=== PATIENT | female | born 1935 | race Caucasian/White ===

== ENCOUNTER 2016-07-08 10:52 | Outpatient (CLI) ==
[2016-07-08 11:22] LABS: ADD URINE MICROSCOPIC YES; BILIRUBIN,URINE NEGATIVE (NEGATIVE); KETONES,URINE NEGATIVE (NEGATIVE); LEUKOCYTE ESTERASE ,URINE NEGATIVE (NEGATIVE); NITRITE,URINE NEGATIVE (NEGATIVE); PROTEIN,URINE NEGATIVE (NEGATIVE); URINE, BLOOD TRACE (NEGATIVE)
== END 2016-07-08 10:53 | disposition home or self-care (01) ==
LOC: NONPT 10:52
PROVIDERS: ATTEND Family Medicine
DX: R35.0 Frequency of micturition (principal)
CPT/HCPCS: 81001

== ENCOUNTER 2017-01-28 05:49 | Emergency (ER) ==
[2017-01-28] MEDS ORDERED: SOLU-MEDROL 125 MG IVP STA (06:03)
[2017-01-28] MEDS ORDERED: DUONEB NEB STA (06:03)
[2017-01-28 06:05] VITALS: BP 112/69; TEMP 98.3; BMI 27.4
--- NOTE | 2017-01-28 06:06 | ED.PDOC ---
General Stated Complaint: Pateint is an 81 year old has a history of COPD and comes to the ER with progressive shortness of breath worse this morning. Time Seen by Physician: 06:05 Mode of Arrival: Wheelchair Information Source: Patient Exam Limitations: No limitations Nursing and Triage Documentation Reviewed and Agree: Yes <DANIEL ESTEBAN - Last Filed: 01/28/17 06:43> Stated Complaint: Disc with Dr Esteban, patient with recurrent copd, exacerbation , disc with patient, much better not well enough to go home, niece notes "flu" yesterday NDV all day all night began 8 AM no vomiting but nausea through this morning with frequent diarrhea 01/27 AM through his morning, severe shortness of breath better with Duoneb <DAYAN WHITFIELD JR - Last Filed: 01/28/17 10:04> ED Provider: Dr. DAYAN WHITFIELD JR Chief Complaint: Shortness of Air Primary Care Provider: AMEENA BARRON Respiratory Complaint Exam - Shortness of Air Complaint/Exam Onset/Duration: 1 week Symptoms Are: Still present Timing: Constant Initial Severity: Moderate Current Severity: Severe Character: Reports: Dyspnea at rest Aggravating: Reports: URI, Weather Alleviating: Reports: Bronchodilators, Oxygen Associated Signs and Symptoms: Reports: Cough, Wheezing. Denies: Chest pain with cough, Chest pain, Fever, Chills <DANIEL ESTEBAN Last Filed: 01/28/17 06:43> Review of Systems - Review Of Systems Constitutional: Reports: No symptoms Eyes: Reports: No symptoms Ears, Nose, Mouth, Throat: Reports: No symptoms Respiratory: Reports: Cough, Short of air, Wheezing Cardiac: Reports: No symptoms GI: Reports: No symptoms : Reports: No symptoms Musculoskeletal: Reports: No symptoms Skin: Reports: No symptoms Neurological: Reports: No symptoms Endocrine: Reports: No symptoms Hematologic/Lymphatic: Reports: No symptoms All Other Systems: Reviewed and Negative <DANIEL ESTEBAN Last Filed: 01/28/17 06:43> Past Medical History - Past Medical History Endocrine: Reports: DM 2, Hypothyroid, Dyslipidemia Cardiovascular: Reports: Hypertension, CHF, A-Fib Respiratory: Reports: COPD, Asthma Hematological: Reports: None Gastrointestinal: Reports: GERD Genitourinary: Reports: None Neuro/Psych: Reports: Anxiety, Depression Musculoskeletal: Reports: Arthritis Cancer: Reports: None Last Menstrual Period: hyst at 40 years old - Surgical History General Surgical History: Reports: Hysterectomy, Other (Thyroidectomy ) - Family History Family History: Reports: None - Social History Smoking Status: Former smoker Hx Substance Use: No Alcohol Screening: None - Immunizations Tetanus Shot up to Date: Yes <DANIEL ESTEBAN - Last Filed: 01/28/17 06:43> Physical Exam - Physical Exam Appearance: Ill-appearing, Well-nourished, Obese Ill-appearing: Moderate Eyes: MILI ENT: Ears normal, Nose normal, Oropharynx normal Neck: Supple Respiratory: Airway patent, Breath sounds equal, Wheezes Cardiovascular: RRR, Pulses normal, No rub, No murmur GI/: Soft, Nontender, No masses, Bowel sounds normal Musculoskeletal: Normal strength, ROM intact, No edema, No calf tenderness Skin: Warm, Dry, Normal color Neurological: Sensation intact, Motor intact, Alert, Oriented Psychiatric: Anxious <DANIEL ESTEBAN - Last Filed: 01/28/17 06:43> Interpretation - Radiology Interpretation Radiology Interpretation By: ED Physician Radiology Results: Negative Exam Interpreted: Portable CXR - EKG Interpretation Rate: Normal Rhythm: Sinus Ectopy: None Time of EKG #2: 06:10 Rate: Normal Rhythm: Sinus [place]: Left ST Segment: Other (Anterior infact unknown age.) EKG Interpretation: incomplete right bandle branch block. <DANIEL ESTEBAN - Last Filed: 01/28/17 06:43> - EKG Interpretation Time of EKG #2: 09:35 EKG Interpretation: unchanged <DAYAN WHITFIELD JR - Last Filed: 01/28/17 10:04> Re-Evaluation - Re-Evaluation Time of Re-Evaluation: 07:01 Status: Improved (CBC LACTATE ABG RESULTS ALL CHEMISTY AND COAG PENDING) <DAYAN WHITFIELD JR - Last Filed: 01/28/17 10:04> Physician Notification - Case Discussed Time of Notification: 07:00 Endorsed To/Discussed With: Dr. Whitfield <DANIEL ESTEBAN - Last Filed: 01/28/17 06:43> - Case Discussed Physician Notified: DR BARRON Time of Notification: 09:50 (MAY HAVE FOLLWO UP IN OFFICE NOW;FAMILY NOT HERE- NOTE HOME EMDS;MAY DISCHARGE HOME) Endorsed To/Discussed With: DR ESTEBAN Time of Discussion: 06:45 (AWAITING LABS) <DAYAN WHITFIELD - Last Filed: 01/28/17 10:04> Critical Care Note - Critical Care Note Total Time (mins): 35 <DANIEL ESTEBAN - Last Filed: 01/28/17 06:43> Course - Course Hematology/Chemistry: 01/28/17 06:28 <DANIEL ESTEBAN - Last Filed: 01/28/17 06:43> - Course Hematology/Chemistry: 01/28/17 06:28 01/28/17 06:28 <WHITFIELDDAYAN RADAMES VEGA - Last Filed: 01/28/17 10:04> - Course Orders, Labs, Meds: Lab Review 01/28/17 01/28/17 01/28/17 06:00 06:28 06:37 WBC 11.73 H RBC 3.82 L Hgb 11.0 L Hct 34.9 L MCV 91.4 MCH 28.8 MCHC 31.5 L RDW Coeff of Esperanza 14.8 Plt Count 320 Immature Gran % (Auto) 0.3 Neut % (Auto) 48.6 Lymph % (Auto) 20.5 Whitman % (Auto) 8.2 Eos % (Auto) 21.8 H Baso % (Auto) 0.6 Immature Gran # (Auto) 0.0 Neut # 5.7 Lymph # 2.4 Whitman # 1.0 Eos # 2.6 H Baso # 0.1 PT 10.9 INR 1.07 D-Dimer (Manual) 1708.30 Puncture Site Lb O2 Saturation 92.0 L ABG pH 7.410 ABG pCO2 49.6 H ABG pO2 64.0 L ABG HCO3 31.4 H ABG Total CO2 33 H ABG Base Excess 7 H Kirby Test + O2 Delivery Device Nc Oxygen Liter Flow 2.00 FiO2 % 28.0 Sodium 144 Potassium 3.5 Chloride 99 Carbon Dioxide 33 H Anion Gap 15.5 BUN 10 Creatinine 0.81 Estimated GFR (MDRD) 68.00 BUN/Creatinine Ratio 12.34 Glucose 128 H Lactic Acid 13.1 Calcium 9.6 Total Bilirubin 0.43 AST 16 ALT 37 Alkaline Phosphatase 142 H Total Creatine Kinase 31 Troponin I 0.0190 B-Natriuretic Peptide 32 Total Protein 6.5 Albumin 3.1 L Globulin 3.4 Albumin/Globulin Ratio 0.91 Procalcitonin < 0.05 Digoxin < 0.30 L Orders Category Date Time Status ABG DRAW REQUEST Stat CARDIO 01/28/17 06:00 Completed EKG-(ED ONLY) Stat CARDIO 01/28/17 06:01 Completed EKG-(ED ONLY) Stat CARDIO 01/28/17 09:29 Completed NEBULIZER TREATMENT Stat CARDIO 01/28/17 06:03 Completed IV ACCESS ONCE CARE 01/28/17 05:59 Active NPO REMINDER: IMAGING ONCE CARE 01/28/17 07:34 Active ED APPLY O2 .ONCE EMERGENCY 01/28/17 05:59 Active ED LPN PER DIEM APPLIED .ONCE EMERGENCY 01/28/17 05:59 Active ED VITAL SIGNS EMERGENCY 01/28/17 05:59 Active IV [ED IV/MEDIPORT/POWERPORT] .ONCE EMERGENCY 01/28/17 06:12 Active ABG Stat LAB 01/28/17 06:00 Completed B-TYPE NATRIURETIC PEPTIDE Stat LAB 01/28/17 06:28 Completed CBC W/ AUTO DIFF Stat LAB 01/28/17 06:28 Completed COMPREHENSIVE METABOLIC PANEL Stat LAB 01/28/17 06:28 Completed CREATINE KINASE Stat LAB 01/28/17 06:28 Completed D-DIMER Stat LAB 01/28/17 06:28 Completed DIGOXIN Stat LAB 01/28/17 06:37 Completed LACTIC ACID Stat LAB 01/28/17 06:28 Completed PROCALCITONIN Stat LAB 01/28/17 06:28 Completed PT WITH INR Stat LAB 01/28/17 06:37 Completed TROPONIN I Stat LAB 01/28/17 06:28 Completed 0.9 % Sodium Chloride [Saline Flush] MEDS 01/28/17 06:12 Active 1 syr IVF PRN PRN Hydrocodone Bit/Acetaminophen [[place] 7.5-325] MEDS 01/28/17 06:38 Discontinued 1 tab PO ONCE STA Ipratropium/Albuterol Neb [Duoneb] MEDS 01/28/17 06:03 Discontinued 1 vial NEB ONCE STA Levofloxacin/D5w [Levaquin] 100 ml MEDS 01/28/17 06:41 Discontinued IV .STK-MED Levofloxacin/D5w [Levaquin] 500 mg MEDS 01/28/17 06:35 Discontinued Premix 100 ml D5w 1 bag IV ONCE Methylprednisolone Sod Succ/Pf [Solu-Medrol 125 mg] MEDS 01/28/17 06:03 Discontinued 125 mg IVP ONCE STA CHEST, 1V AP ONLY Stat RADS 01/28/17 05:[address] CHEST PE PROTOCOL Stat RADS 01/28/17 07:34 Completed Medications Generic Name Dose Route Start Last Admin Trade Name Freq PRN Reason Stop Dose Admin Sodium Chloride 1 syr 01/28/17 06:12 01/28/17 08:08 Saline Flush IVF 1 syr PRN PRN Administration To flush IV Discontinued Medications Generic Name Dose Route Start Last Admin Trade Name Freq PRN Reason Stop Dose Admin Acetaminophen/Hydrocodone Bitart 1 tab 01/28/17 06:38 01/28/17 06:49 [place] 7.5-325 PO 01/28/17 06:39 1 tab ONCE STA Administration Albuterol/Ipratropium 1 vial 01/28/17 06:03 01/28/17 06:21 Duoneb NEB 01/28/17 06:04 1 vial ONCE STA Administration Levofloxacin/Dextrose 500 mg/ 100 mls @ 100 mls/hr 01/28/17 06:35 01/28/17 07 :12 Dextrose IV 01/28/17 07:34 100 mls/hr ONCE STA Administration Methylprednisolone Sodium Succinate 125 mg 01/28/17 06:03 01/28/17 06:34 Solu-Medrol 125 Mg IVP 01/28/17 06:04 125 mg ONCE STA Administration Vital Signs: Temp Pulse Resp BP Pulse Ox 01/28/17 05:50 98.3 F 82 24 112/69 85 L Departure <DANIEL ESTEBAN - Last Filed: 01/28/17 06:43> - Departure Time of Disposition: 10:00 Pt referred to PMD for follow-up: Yes <DAYAN WHITFIELD JR - Last Filed: 01/28/17 10:04> - Departure Disposition: HOME SELF-CARE Discharge Problem: COPD exacerbation Instructions: Emphysema (ED), COPD (Chronic Obstructive Pulmonary Disease) (ED) , How Your Lungs Work (ED) Condition: Good Additional Instructions: home today follow up with PMD bactrim DS twice a day for one week duonebs twice a day for four days then as needed Prescriptions: Sulfamethoxazole/Trimethoprim [Bactrim Ds 800/160 mg] 1 tab PO Q12HR #14 tablet Allergies/Adverse Reactions: Allergies Penicillins Adverse Reaction (Verified 01/28/17 06:07) Hives Home Medications: Ambulatory Orders Atorvastatin Calcium 40 mg PO DAILY 01/28/17 Bisacodyl 5 mg PO DAILY 01/28/17 Clonazepam 0.5 mg PO DAILY 01/28/17 Diltiazem HCl [Cardizem Cd] 180 mg PO DAILY 01/28/17 Docusate Sodium [Colace] 100 mg PO DAILY 01/28/17 Duloxetine HCl [Cymbalta] 60 mg PO DAILY 01/28/17 Furosemide 20 mg PO DAILY 01/28/17 Hydrocodone Bit/Acetaminophen [[place] 7.5-325] 1 tab PO DAILY 01/28/17 Insulin Detemir [Levemir] 10 units SUBCUT DAILY 01/28/17 Insulin Lispro [Humalog] 1 unit SUBCUT QID 01/28/17 Levothyroxine Sodium [Synthroid] 100 mcg PO DAILY 01/28/17 Metformin HCl [Glucophage] 500 mg PO BID 01/28/17 Metoprolol Succinate [Toprol Xl] 25 mg PO DAILY 01/28/17 Pantoprazole Sodium [Protonix] 40 mg PO DAILY 01/28/17 Pregabalin [Lyrica] 75 mg PO DAILY 01/28/17 Promethazine HCl [Phenergan Tab] 25 mg PO DAILY 01/28/17 Rivaroxaban [Xarelto] 20 mg PO DAILY 01/28/17 Sulfamethoxazole/Trimethoprim [Bactrim Ds 800/160 mg] 1 tab PO Q12HR #14 tablet 01/28/17
[2017-01-28 06:16] LABS: ABG BASE EXCESS 7 (-2.0-2.0); ABG HCO3 31.4 (22.0-26.0); ABG PCO2 49.6 mmHg (35-45); ABG TCO2 33 (22.0-28.0)
[2017-01-28 06:31] LABS: BASOPHILS # (AUTO) 0.1 K/uL (0-0.2); BASOPHILS % (AUTO) 0.6 % (0.0-3.0); EOSINOPHILS # (AUTO) 2.6 K/ul (0.0-0.7); EOSINOPHILS % (AUTO) 21.8 % (0.0-7.0); HEMATOCRIT 34.9 % (37.0-47.0); IMMATURE GRANULOCYTE % (AUTO) 0.3 % (0.0-5.0); LYMPHOCYTES # (AUTO) 2.4 K/uL (0.60-3.4); LYMPHOCYTES % (AUTO) 20.5 (10.0-50.0); MEAN CORPUSCULAR HEMOGLOBIN 28.8 pg (27.0-31.0); MEAN CORPUSCULAR HGB CONC 31.5 (31.8-35.4); MEAN CORPUSCULAR VOLUME 91.4 fl (81.0-99.0); MONOCYTES % (AUTO) 8.2 (0-10); NEUTROPHILS # (AUTO) 5.7 K/ul (2.0-6.9); NEUTROPHILS % (AUTO) 48.6; PLATELET COUNT 320 10^3/uL (140-440); RED BLOOD COUNT 3.82 10^6/ul (4.20-5.40); WHITE BLOOD COUNT 11.73 K/ul (4.6-10.2)
[2017-01-28] MEDS ORDERED: LEVAQUIN 500 MG in PREMIX 100 ML D5W 1 BAG IV STA (06:35)
[2017-01-28] MEDS ORDERED: NORCO 7.5-325 PO STA (06:38)
[2017-01-28] MEDS ORDERED: LEVAQUIN 100 ML IV ONE (06:41)
[2017-01-28 06:49] LABS: PROTHROMBIN TIME 10.9 SEC (9.3-11.0)
[2017-01-28 06:57] LABS: ALBUMIN 3.1 g/dL (3.4-5.0); ALBUMIN/GLOBULIN RATIO 0.91; ANION GAP 15.5; BILIRUBIN,TOTAL 0.43 mg/dL (0.00-1.20); CALCIUM 9.6 mg/dL (8.2-10.2); CREATININE 0.81 mg/dL (0.60-1.30); POTASSIUM 3.5 mmol/L (3.5-5.10); TOTAL PROTEIN 6.5 g/dL (5.8-8.1)
[2017-01-28 06:58] LABS: BUN/CREATININE RATIO 12.34; TROPONIN I 0.019 ng/ml (0.0000-0.4000)
--- NOTE | 2017-01-28 07:24 | DI ---
EXAM: CHEST FRONTAL VIEW HISTORY: Cough and shortness of breath. COMPARISON: 05/09/2015 FINDINGS: Heart size is within normal limits. Mild hyperinflation. Left lower lobe calcification consistent with old granulomatous disease. Surgical clips over the right lower neck. No acute bony finding. IMPRESSION: No acute cardiopulmonary process identified.
--- NOTE | 2017-01-28 09:18 | CT ---
EXAM: CTA CHEST (PE PROTOCOL) HISTORY: Short of breath, positive D-dimer TECHNIQUE: CTA with intravenous contrast. Multiplanar images were provided with 3-D reconstruction s. 100 mL Omnipaque. COMPARISON: None FINDINGS: No pulmonary arterial filling defect. Mild to moderate atherosclerotic disease. Normal heart size. No pericardial effusion or mediastinal lymphadenopathy. Lungs reveal chronic interstitial changes throughout with mild basilar bronchiectasis. There is a n oncalcified indeterminate 0.43-cm nodule in the medial posterior aspect of the right lower lobe. Th ere is a 0.43 cm similar nodule in the left lower lobe. Nodular consolidations are seen in the post erior right lung base (atelectasis or pneumonia). Underlying nodules in this region not excluded. A few calcified nodules consistent with old granulomatous disease. There is no pleural fluid, vascu lar congestion or pneumothorax. The bones reveal degenerative disc disease of the lumbar spine. IMPRESSION: 1. No pulmonary arterial thromboembolism identified. 2. At least a single noncalcified, indeterminate nodule found in each lung. Nodular consolidations in the right lung base could represent atelectasis or mild pneumonia. Underlying nodules at this s ite are also not excluded. Consider follow-up CT in 3-4 months. 3. Mild to moderate atherosclerosis.
== END 2017-01-28 10:27 | disposition home or self-care (01) ==
LOC: ED 05:49
DX: J44.1 Chronic obstructive pulmonary disease with (acute) exacerbation (principal); J43.9 Emphysema, unspecified; R06.02 Shortness of breath; E11.9 Type 2 diabetes mellitus without complications; E03.9 Hypothyroidism, unspecified; E78.5 Hyperlipidemia, unspecified; I10 Essential (primary) hypertension; R11.2 Nausea with vomiting, unspecified; R19.7 Diarrhea, unspecified; Z79.899 Other long term (current) drug therapy
CPT/HCPCS: 36415; 80053; 80162; 82550; 82803; 83605; 83880; 84145; 84484; 85025; 85379; 85610; 93005; 93010; 94640; 96365; 96375; 99283

== ENCOUNTER 2017-02-09 06:45 | Emergency (ER) ==
[2017-02-09 06:45] VITALS: BMI 27.4
[2017-02-09 06:55] VITALS: BP 115/67; TEMP 96.4
[2017-02-09] MEDS ORDERED: DUONEB NEB STA ×2 (07:10→08:25)
--- NOTE | 2017-02-09 07:13 | ED.PDOC ---
General ED Provider: Dr. DARIELA MERCADO Chief Complaint: Diarrhea Stated Complaint: Pt complains of diarrhea and abdominal pain for approximately a week. Occasional nausea but no emesis. No fever or chills. Recently treated for an exacerbation of COPD. Given a shot of steroids and currently on Levaquin. Pt reports stools to be be very foul-smelling, but "not like C.Diff. 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." Time Seen by Physician: 07:00 Mode of Arrival: Wheelchair Information Source: Patient Exam Limitations: No limitations Primary Care Provider: AMEENA BARRON Nursing and Triage Documentation Reviewed and Agree: Yes GI Complaint Exam - Vomiting/Diarrhea Complaint/Exam Symptoms Are: Still present Episodes of Diarrhea Over Last 24 Hours: 20 (TNTC) Initial Severity: Moderate Current Severity: Moderate Character of Diarrhea: Reports: Watery Aggravating: Reports: None Alleviating: Reports: None Associated Signs and Symptoms: Reports: Abdominal pain, Cramping Related History: Reports: Recent antibiotics (Levaquin) Last Bowel Movement: last night early AM Recent Positive Test: No Use of Oral Contraceptives: No Use of Depoprovera: No Non-GI Risk Factors: Reports: None Surgical Obstruction Risk Factors: Reports: None Related Surgical History: Reports: None Abdominal Findings: Present: None (generalized tenderness) K[place]maul Respirations Present: No Differential Diagnoses: Dehydration, Viral Gastroenteritis, Bacterial Gastroenteritis (C.Diff) Review of Systems - Review Of Systems Constitutional: Reports: Weakness, Loss of appetite (no food x 2 days) Eyes: Reports: No symptoms Ears, Nose, Mouth, Throat: Reports: No symptoms Respiratory: Reports: Cough, Wheezing Cardiac: Reports: No symptoms GI: Reports: Abdomen distended, Abdominal pain, Diarrhea, Nausea, Poor appetite : Reports: No symptoms Musculoskeletal: Reports: No symptoms Skin: Reports: No symptoms Neurological: Reports: No symptoms All Other Systems: Reviewed and Negative Past Medical History - Past Medical History Endocrine: Reports: DM 2, Hypothyroid, Dyslipidemia Cardiovascular: Reports: Hypertension, CHF, A-Fib Respiratory: Reports: COPD, Asthma Hematological: Reports: None Gastrointestinal: Reports: GERD Genitourinary: Reports: None Neuro/Psych: Reports: Anxiety, Depression Musculoskeletal: Reports: Arthritis Cancer: Reports: None Last Menstrual Period: PT HAS HAD A HYSTERECTOMY - Surgical History General Surgical History: Reports: Hysterectomy, Other (Thyroidectomy ) - Family History Family History: Reports: None - Social History Smoking Status: Former smoker Hx Substance Use: No Alcohol Screening: None Lives: Alone - Immunizations Tetanus Shot up to Date: Yes Physical Exam - Physical Exam Appearance: Ill-appearing, Well-nourished Ill-appearing: Mild Pain Distress: Mild Eyes: MILI, EOMI, Conjunctiva clear ENT: Ears normal, Nose normal, Oropharynx normal Respiratory: Airway patent, Breath sounds equal, Respirations nonlabored, Wheezes (exp wheezes in AF) Cardiovascular: RRR, Pulses normal, No rub, No murmur GI/: Soft, No masses, Bowel sounds normal, No Organomegaly, Tender ( generalized tenderness) Musculoskeletal: Normal strength, ROM intact, No edema, No calf tenderness Skin: Warm, Dry, Normal color Neurological: Sensation intact, Motor intact, Reflexes intact, Cranial nerves intact, Alert, Oriented Psychiatric: Affect appropriate, Mood appropriate Re-Evaluation - Re-Evaluation Time of Re-Evaluation: 09:57 (Patient reveals she took imodium this am and hasn' t moved her bowels since then) Status: Unchanged Vital Signs Stable: Yes Pain Level: 4/10 Appearance: NAD Lungs: Clear Skin: Warm and Dry Neuro: Alert and Oriented X3 CV: RRR Additional Comments: Abd: soft, BS+, generalized mild tenderness Critical Care Note - Critical Care Note Total Time (mins): 0 Course - Course Hematology/Chemistry: 02/09/17 07:24 02/09/17 07:24 Orders, Labs, Meds: Lab Review 02/09/17 02/09/17 07:24 08:00 WBC 14.54 H RBC 3.80 L Hgb 10.6 L Hct 33.9 L MCV 89.2 MCH 27.9 MCHC 31.3 L RDW Coeff of Esperanza 14.7 Plt Count 371 Immature Gran % (Auto) 0.6 Neut % (Auto) 78.8 Lymph % (Auto) 10.8 [place]cc[place]ick % (Auto) 8.2 Eos % (Auto) 1.3 Baso % (Auto) 0.3 Immature Gran # (Auto) 0.1 Neut # 11.5 H Lymph # 1.6 [place]ormick # 1.2 Eos # 0.2 Baso # 0.1 Sodium 138 Potassium 3.6 Chloride 102 Carbon Dioxide 29 Anion Gap 10.6 BUN 16 Creatinine 0.72 Estimated GFR (MDRD) 78.00 BUN/Creatinine Ratio 22.22 Glucose 97 Calcium 9.1 Total Bilirubin 0.48 AST 405 H ALT 127 H Alkaline Phosphatase 162 H Total Protein 6.0 Albumin 3.2 L Globulin 2.8 Albumin/Globulin Ratio 1.14 Urine Color Yellow Urine Clarity Clear Urine pH 7.0 Ur Specific [place] 1.015 Urine Protein Negative Urine Glucose (UA) Negative Urine Ketones Negative Urine Blood Negative Urine Nitrite Negative Urine Bilirubin Negative Urine Urobilinogen 0.2 Ur Leukocyte Esterase Negative Orders Category Date Time Status NEBULIZER TREATMENT Stat CARDIO 02/09/17 07:11 Completed C-DIFF MONITORING (NURSING) BID CARE 02/09/17 07:12 Active C. DIFFICILE Routine LAB 02/09/17 07:12 Uncollected CBC W/ AUTO DIFF Stat LAB 02/09/17 07:24 Completed COMPREHENSIVE METABOLIC PANEL Stat LAB 02/09/17 07:24 Completed OVA AND PARASITES EXAM Stat LAB 02/09/17 07:11 Ordered STOOL CULTURE Stat LAB 02/09/17 Ordered URINALYSIS C & S IF INDICATED Stat LAB 02/09/17 08:00 Completed Ipratropium/Albuterol Neb [Duoneb] MEDS 02/09/17 07:10 Discontinued 1 vial NEB ONCE STA CHEST, 2 VIEWS PA & LAT Stat RADS 02/09/17 07:48 Completed Medications Discontinued Medications Generic Name Dose Route Start Last Admin Trade Name Freq PRN Reason Stop Dose Admin Albuterol/Ipratropium 1 vial 02/09/17 07:10 02/09/17 07:19 Duoneb NEB 02/09/17 07:11 1 vial ONCE STA Administration Vital Signs: Temp Pulse Resp BP Pulse Ox 02/09/17 06:46 96.4 F L 68 24 115/67 97 Departure - Departure Time of Disposition: 09:59 Disposition: HOME SELF-CARE Discharge Problem: Gastroenteritis Instructions: Gastroenteritis (ED) Condition: Good Pt referred to PMD for follow-up: No (if still having diarrhea in 3 days, see PCP) Additional Instructions: Bring in stool sample to get stool labs completed Allergies/Adverse Reactions: Allergies Penicillins Adverse Reaction (Verified 02/09/17 06:55) Hives Home Medications: Ambulatory Orders Atorvastatin Calcium 40 mg PO DAILY 01/28/17 Bisacodyl 5 mg PO DAILY PRN 01/28/17 Clonazepam 1 mg PO BID 01/28/17 Diltiazem HCl [Cardizem Cd] 180 mg PO BID 01/28/17 Duloxetine HCl [Cymbalta] 60 mg PO DAILY 01/28/17 Furosemide 20 mg PO DAILY 01/28/17 Hydrocodone Bit/Acetaminophen [[place] 7.5-325] 1 tab PO Q12H PRN 01/28/17 Insulin Lispro [Humalog] 1 unit SUBCUT QID 01/28/17 Levothyroxine Sodium [Synthroid] 100 mcg PO DAILY 01/28/17 Metformin HCl [Glucophage] 1,000 mg PO BID 01/28/17 Metoprolol Succinate [Toprol Xl] 25 mg PO BID 01/28/17 Pregabalin [Lyrica] 75 mg PO BID 01/28/17 Ipratropium/Albuterol Neb [Duoneb] 1 vial NEB RTQ4H PRN 02/09/17 Ondansetron [Zofran Odt] 4 mg PO 2-4XD PRN #12 tab.rapdis 02/09/17 Rivaroxaban [Xarelto] 15 mg PO DAILY 02/09/17 Disposition Discussed With: Patient
[2017-02-09 07:29] LABS: BASOPHILS # (AUTO) 0.1 K/uL (0-0.2); BASOPHILS % (AUTO) 0.3 % (0.0-3.0); EOSINOPHILS # (AUTO) 0.2 K/ul (0.0-0.7); EOSINOPHILS % (AUTO) 1.3 % (0.0-7.0); HEMATOCRIT 33.9 % (37.0-47.0); HEMOGLOBIN 10.6 g/dl (12.0-16.0); IMMATURE GRANULOCYTE % (AUTO) 0.6 % (0.0-5.0); LYMPHOCYTES # (AUTO) 1.6 K/uL (0.60-3.4); LYMPHOCYTES % (AUTO) 10.8 (10.0-50.0); MEAN CORPUSCULAR HEMOGLOBIN 27.9 pg (27.0-31.0); MEAN CORPUSCULAR HGB CONC 31.3 (31.8-35.4); MEAN CORPUSCULAR VOLUME 89.2 fl (81.0-99.0); MONOCYTES # (AUTO) 1.2 K/uL (0.4-2.0); MONOCYTES % (AUTO) 8.2 (0-10); NEUTROPHILS # (AUTO) 11.5 K/ul (2.0-6.9); NEUTROPHILS % (AUTO) 78.8; PLATELET COUNT 371 10^3/uL (140-440); WHITE BLOOD COUNT 14.54 K/ul (4.6-10.2)
[2017-02-09 07:48] LABS: ALBUMIN 3.2 g/dL (3.4-5.0); ALBUMIN/GLOBULIN RATIO 1.14; ANION GAP 10.6; BILIRUBIN,TOTAL 0.48 mg/dL (0.00-1.20); BUN/CREATININE RATIO 22.22; CALCIUM 9.1 mg/dL (8.2-10.2); CREATININE 0.72 mg/dL (0.60-1.30); POTASSIUM 3.6 mmol/L (3.5-5.10)
[2017-02-09 08:10] LABS: BILIRUBIN,URINE Negative (NEGATIVE); KETONES,URINE Negative (NEGATIVE); LEUKOCYTE ESTERASE ,URINE Negative (NEGATIVE); NITRITE,URINE Negative (NEGATIVE); PROTEIN,URINE Negative (NEGATIVE); URINE, BLOOD Negative (NEGATIVE)
[2017-02-09 08:11] LABS: ADD URINE MICROSCOPIC NO
--- NOTE | 2017-02-09 08:16 | DI ---
Exam: Two-view chest x-ray. Date: 02/09/2017. Comparison: 01/28/2017. HISTORY: Wheezing despite steroid use. FINDINGS: Changes of a probable right thyroidectomy are again seen. The lungs are clear with calci fied granulomas. The cardiac silhouette and pulmonary vasculature are normal. ASVD is present. Impression: No acute intrathoracic findings. Old granulomatous disease.
== END 2017-02-09 10:10 | disposition home or self-care (01) ==
LOC: ED 06:45
DX: K52.9 Noninfective gastroenteritis and colitis, unspecified (principal)
CPT/HCPCS: 36415; 80053; 81001; 85025; 94640; 99283

== ENCOUNTER 2017-03-11 22:58 | Outpatient (CLI) | END 2017-03-11 23:30 | disposition short-term general hospital (02) | LOC: AMBL 22:58 | PROVIDERS: ATTEND Internal Medicine Geriatric Medicine | DX: R53.1 Weakness (principal); R19.7 Diarrhea, unspecified; R41.82 Altered mental status, unspecified ==

== ENCOUNTER 2017-05-14 04:28 | Emergency (ER) ==
[2017-05-14] MEDS ORDERED: DUONEB NEB STA ×2 (04:32→08:53)
[2017-05-14] MEDS ORDERED: SOLU-MEDROL 125 MG IVP STA (04:32)
[2017-05-14] MEDS ORDERED: LEVAQUIN 500 MG in PREMIX 100 ML D5W 1 BAG IV STA (04:34)
[2017-05-14 04:35] VITALS: BP 135/58; TEMP 96.4; BMI 25.7
[2017-05-14] MEDS ORDERED: LEVAQUIN 100 ML IV ONE (04:37)
[2017-05-14 04:51] LABS: BASOPHILS # (AUTO) 0.1 K/uL (0-0.2); BASOPHILS % (AUTO) 0.4 % (0.0-3.0); EOSINOPHILS # (AUTO) 1.6 K/ul (0.0-0.7); EOSINOPHILS % (AUTO) 10.7 % (0.0-7.0); HEMATOCRIT 35.1 % (37.0-47.0); HEMOGLOBIN 10.4 g/dl (12.0-16.0); IMMATURE GRANULOCYTE % (AUTO) 0.7 % (0.0-5.0); LYMPHOCYTES # (AUTO) 2.4 K/uL (0.60-3.4); LYMPHOCYTES % (AUTO) 16.3 (10.0-50.0); MEAN CORPUSCULAR HEMOGLOBIN 25.8 pg (27.0-31.0); MEAN CORPUSCULAR HGB CONC 29.6 (31.8-35.4); MEAN CORPUSCULAR VOLUME 87.1 fl (81.0-99.0); MONOCYTES % (AUTO) 6.6 (0-10); NEUTROPHILS # (AUTO) 9.7 K/ul (2.0-6.9); NEUTROPHILS % (AUTO) 65.3; PLATELET COUNT 307 10^3/uL (140-440); RED BLOOD COUNT 4.03 10^6/ul (4.20-5.40); WHITE BLOOD COUNT 14.89 K/ul (4.6-10.2)
[2017-05-14 04:54] LABS: ABG BASE EXCESS 5 (-2.0-2.0); ABG PCO2 85.5 mmHg (35-45); ABG PH 7.193 (7.35-7.45)
[2017-05-14 04:55] LABS: ABG HCO3 32.9 (22.0-26.0); ABG TCO2 35 (22.0-28.0)
--- NOTE | 2017-05-14 04:58 | ED.PDOC ---
General Stated Complaint: Started with coughing, congestion, today got worse, she was found on the floor outside the house. Was in the respiratory distress, wheezing. Time Seen by Physician: 04:55 Mode of Arrival: Wheelchair Information Source: Patient, Police Nursing and Triage Documentation Reviewed and Agree: Yes <MOIZ NETTLES - Last Filed: 05/14/17 06:52> <BRAD RODRIGUEZ - Last Filed: 05/14/17 11:24> ED Provider: Dr. BRAD RODRIGUEZ Chief Complaint: Shortness of Air Primary Care Provider: AMEENA BARRON Respiratory Complaint Exam - Respiratory Complaint/Exam Symptoms Are: Still present Timing: Constant Initial Severity: Severe Current Severity: Moderate Location: Chest Character: Reports: Productive cough Aggravating: Reports: Allergens, Exertion, URI Alleviating: Reports: None Associated Signs and Symptoms: Reports: Dyspnea, Wheezing, URI, Nasal congestion , Hoarseness. Denies: Rapid breathing, Fever, Chills, Chest pain, Pleuritic chest pain, Hemoptysis, Dizziness, Calf pain, Calf swelling, Edema, Sinus discomfort, Vomiting, Sore throat, Weight loss, Decreased oral intake, Increased thirst, Increased appetite, Increased urination Related History: Reports: Similar episode History of Healthcare-Acquired Pneumonia: No Related Surgical History: Reports: None Pulmonary Embolism Risk Factors: None Cardiac Risk Factors: Reports: None Pseudomonas Risk Factors: Reports: None Tuberculosis Risk Factors: Reports: None Status Asthmaticus Risk Factors: Reports: None Home Oxygen Use: No Recent Stress Test: No Recent Echo/LV Function: No Current Antibiotic Use: No Current Asthma Medication Use: No Respiratory Distress: Severe Inadequate Respiratory Effort: No Dysphagia Present: No Stridor Present: No JVD Present: No Accessory Muscle Use: No Retractions: Not Present Diminished Breath Sounds: Yes Prolonged Respiration: Expiratory phase Sinus Tenderness: None Grunting Respirations: No Kussmaul Respirations: No Differential Diagnoses: CHF, Pulmonary Edema, COPD Exacerbation, Pneumonia <MOIZ NETTLES - Last Filed: 05/14/17 06:52> Review of Systems - Review Of Systems Constitutional: Reports: Malaise, Weakness Eyes: Reports: No symptoms Ears, Nose, Mouth, Throat: Reports: No symptoms Respiratory: Reports: Cough, Short of air, Wheezing Cardiac: Reports: No symptoms GI: Reports: No symptoms : Reports: No symptoms Musculoskeletal: Reports: No symptoms Skin: Reports: No symptoms Neurological: Reports: No symptoms Endocrine: Reports: No symptoms Hematologic/Lymphatic: Reports: No symptoms All Other Systems: Reviewed and Negative <MOIZ NETTLES - Last Filed: 05/14/17 06:52> Past Medical History - Past Medical History Previously Healthy: Yes Endocrine: Reports: DM 2, Hypothyroid, Dyslipidemia Cardiovascular: Reports: Hypertension, CHF, A-Fib Respiratory: Reports: COPD, Asthma Hematological: Reports: None Gastrointestinal: Reports: GERD Genitourinary: Reports: None Neuro/Psych: Reports: Anxiety, Depression Musculoskeletal: Reports: Arthritis Cancer: Reports: None Last Menstrual Period: UNKNOWN - Surgical History General Surgical History: Reports: Hysterectomy, Other (Thyroidectomy ) - Family History Family History: Reports: None - Social History Smoking Status: Former smoker Hx Substance Use: No Alcohol Screening: None - Immunizations Tetanus Shot up to Date: (UNKNOWN) <MOIZ NETTLES - Last Filed: 05/14/17 06:52> Physical Exam - Physical Exam Appearance: Ill-appearing Ill-appearing: Severe Eyes: EOMI ENT: Ears normal, Nose normal, Oropharynx normal Respiratory: Crackles, Wheezes Cardiovascular: RRR GI/: Soft, Nontender, No masses, Bowel sounds normal, No Organomegaly Musculoskeletal: Normal strength, ROM intact, No edema, No calf tenderness Skin: Warm, Dry, Normal color Neurological: Sensation intact, Motor intact, Reflexes intact, Cranial nerves intact, Alert, Oriented Psychiatric: Affect appropriate, Mood appropriate <MOIZ NETTLES - Last Filed: 05/14/17 06:52> Physician Notification - Case Discussed Physician Notified: Dr. Barron Time of Notification: 07:40 ( will speak with [facility] for disposition determination) <BRAD RODRIGUEZ - Last Filed: 05/14/17 11:24> Critical Care Note - Critical Care Note Total Time (mins): 30 <MOIZ NETTLES - Last Filed: 05/14/17 06:52> Course - Course Hematology/Chemistry: 05/14/17 04:50 05/14/17 04:50 <MOIZ NETTLES - Last Filed: 05/14/17 06:52> - Course Hematology/Chemistry: 05/14/17 04:50 05/14/17 04:50 <JENNIFERBRAD - Last Filed: 05/14/17 11:24> - Course Orders, Labs, Meds: Lab Review 05/14/17 05/14/17 05/14/17 04:32 04:50 04:50 WBC 14.89 H RBC 4.03 L Hgb 10.4 L Hct 35.1 L MCV 87.1 MCH 25.8 L MCHC 29.6 L RDW Coeff of [place] 18.3 H Plt Count 307 Immature Gran % (Auto) 0.7 Neut % (Auto) 65.3 Lymph % (Auto) 16.3 [place] % (Auto) 6.6 Eos % (Auto) 10.7 H Baso % (Auto) 0.4 Immature Gran # (Auto) 0.1 Neut # 9.7 H Lymph # 2.4 [place] # 1.0 Eos # 1.6 H Baso # 0.1 D-Dimer (Manual) Puncture Site Rr O2 Saturation 100.0 ABG pH 7.193 L* ABG pCO2 85.5 H ABG pO2 375.0 H ABG HCO3 32.9 H ABG Total CO2 35 H ABG Base Excess 5 H Kirby Test + O2 Delivery Device Nrb Oxygen Liter Flow 15.00 FiO2 % 100.0 Sodium 139 Potassium 4.0 Chloride 96 L Carbon Dioxide 28 Anion Gap 19.0 BUN 13 Creatinine 0.82 Estimated GFR (MDRD) 67.00 BUN/Creatinine Ratio 15.85 Glucose 123 H Lactic Acid Calcium 9.4 Total Bilirubin 0.24 AST 198 H ALT 331 H Alkaline Phosphatase 496 H Total Creatine Kinase 87 Troponin I < 0.0100 B-Natriuretic Peptide Total Protein 7.6 Albumin 3.3 L Globulin 4.3 Albumin/Globulin Ratio 0.77 Procalcitonin 05/14/17 05/14/17 05/14/17 04:50 04:50 04:50 WBC RBC Hgb Hct MCV MCH MCHC RDW Coeff of [place] Plt Count Immature Gran % (Auto) Neut % (Auto) Lymph % (Auto) [place] % (Auto) Eos % (Auto) Baso % (Auto) Immature Gran # (Auto) Neut # Lymph # [place] # Eos # Baso # D-Dimer (Manual) 787.60 Puncture Site O2 Saturation ABG pH ABG pCO2 ABG pO2 ABG HCO3 ABG Total CO2 ABG Base Excess Kirby Test O2 Delivery Device Oxygen Liter Flow FiO2 % Sodium Potassium Chloride Carbon Dioxide Anion Gap BUN Creatinine Estimated GFR (MDRD) BUN/Creatinine Ratio Glucose Lactic Acid 44.8 H Calcium Total Bilirubin AST ALT Alkaline Phosphatase Total Creatine Kinase Troponin I B-Natriuretic Peptide 77 Total Protein Albumin Globulin Albumin/Globulin Ratio Procalcitonin 05/14/17 05/14/17 04:50 06:00 WBC RBC Hgb Hct MCV MCH MCHC RDW Coeff of [place] Plt Count Immature Gran % (Auto) Neut % (Auto) Lymph % (Auto) [place] % (Auto) Eos % (Auto) Baso % (Auto) Immature Gran # (Auto) Neut # Lymph # [place] # Eos # Baso # D-Dimer (Manual) Puncture Site Lb O2 Saturation 92.0 L ABG pH 7.337 L ABG pCO2 66.7 H ABG pO2 71.0 L ABG HCO3 35.7 H ABG Total CO2 38 H ABG Base Excess 10 H Kirby Test + O2 Delivery Device Bipap Oxygen Liter Flow FiO2 % 28.0 Sodium Potassium Chloride Carbon Dioxide Anion Gap BUN Creatinine Estimated GFR (MDRD) BUN/Creatinine Ratio Glucose Lactic Acid Calcium Total Bilirubin AST ALT Alkaline Phosphatase Total Creatine Kinase Troponin I B-Natriuretic Peptide Total Protein Albumin Globulin Albumin/Globulin Ratio Procalcitonin 0.10 Orders Category Date Time Status ABG DRAW REQUEST DAILY@0600 CARDIO 05/15/17 06:00 Ordered ABG DRAW REQUEST DAILY@0600 CARDIO 05/16/17 06:00 Ordered ABG DRAW REQUEST DAILY@0600 CARDIO 05/17/17 06:00 Ordered ABG DRAW REQUEST Stat CARDIO 05/14/17 04:33 Completed ABG DRAW REQUEST Stat CARDIO 05/14/17 06:38 Completed BIPAP Routine CARDIO 05/14/17 05:03 Completed EKG-(ED ONLY) Stat CARDIO 05/14/17 06:38 Completed NEBULIZER TREATMENT Stat CARDIO 05/14/17 04:33 Completed NEBULIZER TREATMENT Stat CARDIO 05/14/17 08:54 Completed ED IV/MEDIPORT/POWERPORT .ONCE EMERGENCY 05/14/17 04:32 Active ABG DAILY@0600 LAB 05/14/17 06:00 Completed ABG DAILY@0600 LAB 05/15/17 06:00 Ordered ABG DAILY@0600 LAB 05/16/17 06:00 Ordered ABG DAILY@0600 LAB 05/17/17 06:00 Ordered ABG Stat LAB 05/14/17 04:32 Completed B-TYPE NATRIURETIC PEPTIDE Stat LAB 05/14/17 04:50 Completed CBC W/ AUTO DIFF Stat LAB 05/14/17 04:50 Completed COMPREHENSIVE METABOLIC PANEL Stat LAB 05/14/17 04:50 Completed CREATINE KINASE Stat LAB 05/14/17 04:50 Completed D-DIMER Stat LAB 05/14/17 04:50 Completed LACTIC ACID Stat LAB 05/14/17 04:50 Completed PROCALCITONIN Stat LAB 05/14/17 04:50 Completed TROPONIN I Stat LAB 05/14/17 04:50 Completed 0.9 % Sodium Chloride [Saline Flush] MEDS 05/14/17 04:32 Active 1 syr IVF PRN PRN Hydrocodone Bit/Acetaminophen [[place] 5-325] MEDS 05/14/17 10:38 Discontinued 1 tab PO ONCE STA Ipratropium/Albuterol Neb [Duoneb] MEDS 05/14/17 04:32 Discontinued 1 vial NEB ONCE STA Ipratropium/Albuterol Neb [Duoneb] MEDS 05/14/17 08:53 Discontinued 1 vial NEB ONCE STA Levofloxacin/D5w [Levaquin] 100 ml MEDS 05/14/17 04:37 Discontinued IV .STK-MED Levofloxacin/D5w [Levaquin] 500 mg MEDS 05/14/17 04:34 Discontinued Premix 100 ml D5w 1 bag IV ONCE Methylprednisolone Sod Succ/Pf [Solu-Medrol 125 mg] MEDS 05/14/17 04:32 Discontinued 125 [address] IVP ONCE [address]A CT CHEST W/O CONTRAST Stat RADS 05/14/17 04:32 Completed Medications Generic Name Dose Route Start Last Admin Trade Name Freq PRN Reason Stop Dose Admin Sodium Chloride 1 syr 05/14/17 04:32 05/14/17 04:51 Saline Flush IVF 1 syr PRN PRN Administration To flush IV Discontinued Medications Generic Name Dose Route Start Last Admin Trade Name Freq PRN Reason Stop Dose Admin Acetaminophen/Hydrocodone Bitart 1 tab 05/14/17 10:38 05/14/17 10:45 [place] 5-325 PO 05/14/17 10:39 1 tab ONCE STA Administration Albuterol/Ipratropium 1 vial 05/14/17 04:32 05/14/17 04:33 Duoneb NEB 05/14/17 04:33 1 vial ONCE STA Administration Albuterol/Ipratropium 1 vial 05/14/17 08:53 05/14/17 08:58 Duoneb NEB 05/14/17 08:54 1 vial ONCE STA Administration Levofloxacin/Dextrose 500 mg/ 100 mls @ 100 mls/hr 05/14/17 04:34 05/14/17 04 :48 Dextrose IV 05/14/17 05:33 100 mls/hr ONCE STA Administration Methylprednisolone Sodium Succinate 125 mg 05/14/17 04:32 05/14/17 04:46 Solu-Medrol 125 Mg IVP 05/14/17 04:33 125 mg ONCE STA Administration Vital Signs: Temp Pulse Resp BP Pulse Ox 05/14/17 05:13 99 05/14/17 04:28 96.4 F L 98 H 40 H 135/58 L 72 L Departure - Departure Time of Disposition: 06:53 Disposition Discussed With: Patient <MOIZ NETTLES - Last Filed: 05/14/17 06:52> - Departure Time of Disposition: 11:23 Pt referred to PMD for follow-up: Yes (Call for appointment) Disposition Discussed With: Patient, Family <BRAD RODRIGUEZ - Last Filed: 05/14/17 11:24> - Departure Disposition: TSF [facility]ORT-TRM [facility]OSP Discharge Problem: COPD exacerbation Hypercapnic respiratory failure Qualifiers: Chronicity: acute Qualified Code(s): J96.02 - Acute respiratory failure with hypercapnia Instructions: COPD (Chronic Obstructive Pulmonary Disease) (ED) Condition: Stable Allergies/Adverse Reactions: Allergies Penicillins Adverse Reaction (Verified 02/09/17 06:55) Hives Home Medications: Ambulatory Orders Atorvastatin Calcium 40 mg PO DAILY 01/28/17 Bisacodyl 5 mg PO DAILY PRN 01/28/17 Clonazepam 1 mg PO BID 01/28/17 Diltiazem HCl [Cardizem Cd] 180 mg PO BID 01/28/17 Duloxetine HCl [Cymbalta] 60 mg PO DAILY 01/28/17 Furosemide 20 mg PO DAILY 01/28/17 Hydrocodone Bit/Acetaminophen [[place] 7.5-325] 1 tab PO Q12H PRN 01/28/17 Insulin Lispro [Humalog] 1 unit SUBCUT QID 01/28/17 Levothyroxine Sodium [Synthroid] 100 mcg PO DAILY 01/28/17 Metformin HCl [Glucophage] 1,000 mg PO BID 01/28/17 Metoprolol Succinate [Toprol Xl] 25 mg PO BID 01/28/17 Pregabalin [Lyrica] 75 mg PO BID 01/28/17 Ipratropium/Albuterol Neb [Duoneb] 1 vial NEB RTQ4H PRN 02/09/17 Ondansetron [Zofran Odt] 4 mg PO 2-4XD PRN #12 tab.rapdis 02/09/17 Rivaroxaban [Xarelto] 15 mg PO DAILY 02/09/17
[2017-05-14 05:13] LABS: ALANINE AMINOTRANSFERASE 331 U/L (12-78); ALBUMIN 3.3 g/dL (3.4-5.0); ALBUMIN/GLOBULIN RATIO 0.77; ALKALINE PHOSPHATASE 496 U/L (53-141); ASPARTATE AMINO TRANSFERASE 198 U/L (15-37); BILIRUBIN,TOTAL 0.24 mg/dL (0.00-1.20); BLOOD UREA NITROGEN 13 mg/dL (7-18); BUN/CREATININE RATIO 15.85; CALCIUM 9.4 mg/dL (8.2-10.2); CARBON DIOXIDE 28 mmol/L (23-31); CHLORIDE 96 mmol/L (98-107); CREATINE KINASE 87 U/L; CREATININE 0.82 mg/dL (0.60-1.30); GLUCOSE 123 mg/dL (82-115); SODIUM 139 mmol/L (136-145); TOTAL PROTEIN 7.6 g/dL (5.8-8.1)
--- NOTE | 2017-05-14 06:06 | CT ---
EXAM: CT scan thorax without contrast HISTORY: Shortness of breath COMPARISON: CTA thorax 01/28/2017 FINDINGS: Contiguous axial images obtained through the thorax without contrast utilizing 5-mm collim ation.. Sagittal and coronal reconstructions were imaged and reviewed Clips are seen in the right t hyroid bed from the partial thyroidectomy. The ascending aorta is ectatic measuring 3.7 cm. The hea rt is normal in size with mild coronary artery calcification. Calcified lymph nodes are seen within the left hilum subcarinal region.. Scattered calcified granulomas are noted bilaterally. There is a stable 3.7 mm nodule posteromedially within the right lower lobe. There is also 3.4 mm stable nodul e anteriorly within the left lower lobe... There is no evidence of infiltrate or effusion.. There i s a common bile duct stent extending into the duodenum. There are degenerative changes seen within t he upper lumbar spine. IMPRESSION: Ectatic ascending aorta. Mild coronary artery calcification without pericardial effusion. Benign granulomatous changes. Stable tiny bilateral pulmonary nodules as described.
[2017-05-14 06:22] LABS: ABG PCO2 66.7 mmHg (35-45); ABG PH 7.337 (7.35-7.45)
[2017-05-14 06:25] LABS: ABG BASE EXCESS 10 (-2.0-2.0); ABG HCO3 35.7 (22.0-26.0); ABG TCO2 38 (22.0-28.0)
[2017-05-14] MEDS ORDERED: NORCO 5-325 PO STA (10:38)
[2017-05-14] MEDS ORDERED: PHENERGAN TAB PO STA (11:59)
== END 2017-05-14 13:02 | disposition short-term general hospital (02) ==
LOC: ED 04:28
DX: J44.1 Chronic obstructive pulmonary disease with (acute) exacerbation (principal); J96.02 Acute respiratory failure with hypercapnia; E11.9 Type 2 diabetes mellitus without complications; E78.5 Hyperlipidemia, unspecified; E03.9 Hypothyroidism, unspecified; I10 Essential (primary) hypertension; R06.02 Shortness of breath; Z79.899 Other long term (current) drug therapy; R41.82 Altered mental status, unspecified
CPT/HCPCS: 36415; 80053; 82550; 82803; 83605; 83880; 84145; 84484; 85025; 85379; 93005; 93010; 94640; 94660; 96365; 96375; 99285